=== PATIENT | female | born 1960 | race African-American/Black ===

== ENCOUNTER → 2017-05-07 | Outpatient (REF) | payer MEDICARE | LOC: M LAB REF 12:40 | DX: J11.1 Influenza due to unidentified influenza virus with other respiratory manifestations (principal) | CPT/HCPCS: 87502 ==

== ENCOUNTER → 2017-09-20 | Outpatient (REF) | payer MEDICARE ==
[2017-09-20 11:00] LABS: ERYTHROCYTE SEDIMENTATION RATE 14 mm/hr (0-30)
[2017-09-20 11:07] LABS: C REACTIVE PROTEIN QUANTITATIV 1.58 MG/DL (0.00-0.30); RHEUMATOID FACTOR QUANT < 10.0 IU/ML (<15.0)
[2017-09-21 14:17] LABS: ANTI DOUBLE STRAND-DNA AB <1 IU/mL (0-9); ANTINUCLEAR ANTIBODIES DIRECT Positive (Negative); RNP ANTIBODIES <0.2 AI (0.0-0.9); SJOGREN'S ANTI SS-A >8.0 AI (0.0-0.9); SJOGREN'S ANTI SS-B <0.2 AI (0.0-0.9); SMITH ANTIBODIES <0.2 AI (0.0-0.9)
== END ==
LOC: M LABDRAW1 09:39
DX: M54.2 Cervicalgia (principal)
CPT/HCPCS: 84550

== ENCOUNTER → 2018-06-12 | Outpatient (REF) | payer MEDICARE ==
[2018-06-14 16:40] LABS: HPV HYBRID CAPTURE II Negative (Negative)
== END ==
LOC: M LAB REF 18:27
PROVIDERS: ATTEND Obstetrics & Gynecology
DX: Z12.4 Encounter for screening for malignant neoplasm of cervix (principal)
CPT/HCPCS: 87624; G0123

== ENCOUNTER → 2018-06-12 | Outpatient (REF) | payer MEDICARE ==
[2018-06-12 11:17] LABS: BASO % 0.5 % (0.0-1.0); EOS # 0.1 10^3/uL (0.0-0.50); EOS % 1.5 % (0.0-3.0); HEMATOCRIT 37.4 % (36.0-47.0); HEMOGLOBIN 12.2 g/dl (12.0-15.5); LYMPH # 2.5 10^3/uL (1.5-4.5); LYMPH % 32.6 % (24.0-44.0); MEAN CORPUSCULAR HGB CONC 32.6 g/dl (32.0-36.5); MEAN CORPUSCULAR VOLUME 85.8 fl (80.0-96.0); MONO # 0.7 10^3/uL (0.0-0.8); MONO % 8.6 % (0.0-5.0); NEUTROPHILS # 4.3 10^3/uL (1.8-7.7); NEUTROPHILS % 56.5 % (36.0-66.0); PLATELET COUNT, AUTOMATED 173 10^3/uL (150-450); RED BLOOD COUNT 4.36 10^6/uL (4.00-5.40); WHITE BLOOD COUNT 7.6 10^3/uL (4.0-10.0)
[2018-06-12 11:32] LABS: HEMOGLOBIN A1c 6.8 %
[2018-06-12 12:26] LABS: ALT/SGPT 26 U/L (12-78); BILIRUBIN,TOTAL 0.4 MG/DL (0.2-1.0); BLOOD UREA NITROGEN 24 MG/DL (7-18); CALCIUM LEVEL 8.9 MG/DL (8.5-10.1); CARBON DIOXIDE LEVEL 26 MEQ/L (21-32); CHLORIDE LEVEL 107 MEQ/L (98-107); CHOLESTEROL LEVEL 266 MG/DL (<200); CHOLESTEROL RISK RATIO 5.541 (<5); CREATININE FOR GFR 0.95 MG/DL (0.55-1.30); GLOMERULAR FILTRATION RATE > 60.0 (>51); GLUCOSE, FASTING 117 MG/DL (70-100); HDL CHOLESTEROL 48 MG/DL (>40); LDL CHOLESTEROL 190 MG/DL (<100); NON-HDL-C 218 MG/DL; POTASSIUM SERUM 4.1 MEQ/L (3.5-5.1); SODIUM LEVEL 140 MEQ/L (136-145); TOTAL 25(OH) VITAMIN D 61.3 NG/ML (30.0-100.0); TOTAL PROTEIN 8.6 GM/DL (6.4-8.2); TRIGLYCERIDES LEVEL 140 MG/DL (<150)
[2018-06-14 00:07] LABS: Lyme Disease IgG/IgM Antibodie <0.91 ISR (0.00-0.90); Lyme Disease IgM Ab Quantitati <0.80 index (0.00-0.79)
== END ==
LOC: M LAB REF 10:47
PROVIDERS: ATTEND Family Medicine
DX: Z13.228 Encounter for screening for other metabolic disorders (principal); Z00.01 Encounter for general adult medical examination with abnormal findings; M25.559 Pain in unspecified hip

== ENCOUNTER → 2018-06-18 | Outpatient (CLI) | payer MEDICARE, MEDICAID ==
--- NOTE | 2018-06-18 15:28 | REP ---
Clinical: Pelvic pain . Technique: Transabdominal pelvic ultrasound followed by transvaginal examination for better evaluation of the endometrium and adnexa with color Doppler evaluation of the ovaries. Findings: Bladder is unremarkable and measures 9.1 x 8.1 x 6.0 cm . Heterogeneous anteverted myomatous uterus measures 5.9 x 3.1 x 4.0 cm . The endometrial complex measures 6 mm thickness exclusive of a small amount of fluid in the endometrial canal. Right posterior subserosal fibroid measures 1.3 cm maximal diameter; left submucosal fibroid measures 1.3 cm maximal diameter; left intramural fibroid measures 1.0 cm maximal diameter. Bilateral ovaries are normal in appearance and vascularity without evidence for torsion. Right ovary measures 2.7 x 1.3 x 1.4 cm ; R I = 0.72 . Left ovary measures 2.7 x 1.5 x 1.4 cm ; R I = 0.67 . No pelvic fluid or adnexal abnormality. Impression: 1. myomatous uterus as described above. 2. Normal bilateral ovaries without torsion. Electronically Signed by Marcelo Ortiz MD 06/18/2018 03:19 P
--- NOTE | 2018-06-19 16:17 | REPMRS ---
Patient History The patient states she had a clinical breast exam in May 2018. Patient is postmenopausal. No known family history of cancer. Patient had a prior 2-3 years ago in [facility] with normal results. She has CD at home and will bring back for files to upload. 3D TOMOSYNTHESIS WAS PERFORMED. Digital Mammo Screening Bilat: June 18, 2018 - Exam #: [id number] Bilateral CC and MLO view(s) were taken. Technologist: Cass Rae, Technologist Prior study comparison: December 10, 2012, bilateral digital mammo screening bilat, performed at [facility]. FINDINGS: The breast tissue is heterogeneously dense. This may lower the sensitivity of mammography. There has been no change in the appearance of the mammogram from the prior studies. There is a moderate amount of residual fibroglandular tissue which is fairly symmetric. There is no interval development of dominant mass, areas of architectural distortion, or clustered microcalcification typical of malignancy. Assessment: BI-RADS/ACR category 1 mammogram. Negative Mammogram. Recommendation Routine screening mammogram in 1 year (for women over age 40). This mammogram was interpreted with the aid of an FDA-approved computer-aided dectection system. Electronically Signed By: Omar Mckenzie MD 06/19/18 [id number]
== END ==
LOC: M RAD 13:11
PROVIDERS: ATTEND Obstetrics & Gynecology
DX: Z12.31 Encounter for screening mammogram for malignant neoplasm of breast (principal); R10.2 Pelvic and perineal pain; Z78.0 Asymptomatic menopausal state; D25.9 Leiomyoma of uterus, unspecified

== ENCOUNTER 2018-09-02 11:38 | Emergency (ER) | payer MEDICAID, MEDICARE ==
[~2018-09-02] VITALS: Ht 162.6 cm; Wt 77.3 kg
[2018-09-02] MEDS ORDERED: METO1TAB32 (11:46)
[2018-09-02] MEDS ORDERED: ESOM20CA25 (11:46)
[2018-09-02] MEDS ORDERED: HYDR25TAB (11:46)
--- NOTE | 2018-09-02 14:10 | REP ---
Left lower extremity deep vein duplex ultrasound: The deep veins demonstrate normal compression, normal Doppler color flow and normal Doppler waveforms with respiration and augmentation from the popliteal vein to the common femoral vein. Impression: There is no left lower extremity deep vein thrombus. Electronically Signed by Omar Herrera MD 09/02/2018 12:17 P
[2018-09-02 14:31] LABS: BASO % 0.3 % (0.0-1.0); EOS # 0.1 10^3/uL (0.0-0.50); EOS % 1.5 % (0.0-3.0); HEMATOCRIT 35.5 % (36.0-47.0); HEMOGLOBIN 11.6 g/dl (12.0-15.5); LYMPH # 1.9 10^3/uL (1.5-4.5); LYMPH % 29.5 % (24.0-44.0); MEAN CORPUSCULAR HEMOGLOBIN 28.9 pg (27.0-33.0); MEAN CORPUSCULAR HGB CONC 32.7 g/dl (32.0-36.5); MEAN CORPUSCULAR VOLUME 88.5 fl (80.0-96.0); MONO # 0.5 10^3/uL (0.0-0.8); MONO % 7.8 % (0.0-5.0); NEUTROPHILS % 60.7 % (36.0-66.0); PLATELET COUNT, AUTOMATED 158 10^3/uL (150-450); RED BLOOD COUNT 4.01 10^6/uL (4.00-5.40); WHITE BLOOD COUNT 6.6 10^3/uL (4.0-10.0)
[2018-09-02 14:58] LABS: BLOOD UREA NITROGEN 31 MG/DL (7-18); CALCIUM LEVEL 9.9 MG/DL (8.5-10.1); CARBON DIOXIDE LEVEL 27 MEQ/L (21-32); CHLORIDE LEVEL 106 MEQ/L (98-107); CK-MB VALUE MASS 1.3 NG/ML (<3.6); CPK CREATINE PHOSPHOKINASE 182 U/L (26-192); CREATININE FOR GFR 1.07 MG/DL (0.55-1.30); GLOMERULAR FILTRATION RATE > 60.0 (>51); GLUCOSE, FASTING 91 MG/DL (70-100); MB/CK RELATIVE INDEX 0.71 (< OR =4); SODIUM LEVEL 138 MEQ/L (136-145); TROPONIN I 0.03 NG/ML (< 0.10)
[2018-09-02] MEDS ORDERED: NS 1,000 ML IV ONE (15:00)
[2018-09-02] MEDS ORDERED: ISOVUE-370 76% 100ML VIAL (Q9967) As Ordered ONE (15:04)
--- NOTE | 2018-09-02 15:23 | REP ---
CHEST, TWO VIEWS: There is no evidence of acute infiltrate. No pleural effusion is seen. The heart is normal in size. The mediastinal silhouette is unremarkable. The visualized osseous structures are intact. There are degenerative changes of the spine. IMPRESSION: No acute pulmonary disease. Electronically Signed by Omar Mckenzie MD 09/02/2018 04:44 P
[2018-09-02] MEDS ORDERED: PEPC1TAB5 PO (17:23)
[2018-09-02] MEDS ORDERED: NAPR-885 PO (17:24)
[2018-09-02 17:28] VITALS: BP 141/74
--- NOTE | 2018-09-02 17:34 | REP ---
CT ANGIOGRAM CHEST: TECHNIQUE: Axial contrast enhanced images from the thoracic inlet to the upper abdomen using 100 mL Isovue 370 intravenous contrast material with multiplanar reformations. There is no CT evidence of pulmonary embolism. There is no thoracic aortic aneurysm of dissection. The heart is mildly enlarged. There is no pleural or pericardial effusion. There is no mediastinal, hilar or chest wall lymphadenopathy. The lungs show no infiltrate. Visualized upper abdominal structures appear unremarkable. IMPRESSION: No CT evidence of pulmonary embolism or aortic dissection. Electronically Signed by Omar Mckenzie MD 09/03/2018 02:34 P
--- NOTE | 2018-09-02 19:22 | ECGEPIP ---
[facility] - ED Test Date: 2018-09-02 Pat Name: ENEIDA GUSTAFSON Department: Room: - Gender: Female [employer]: : 1960 Requested By: Sachin Delgado Order Number: [id number] Reading MD: Arti Curtis Measurements Intervals [place] Rate: 53 P: 55 MS: 153 QRS: 15 QRSD: 76 T: 24 QT: 424 QTc: 398 Interpretive Statements SINUS BRADYCARDIA NO PRIOR FOR COMPARISON Electronically Signed on 09-02-2018 19:21:51 EDT by Arti Curtis
== END 2018-09-02 17:35 | disposition home or self-care (01) ==
LOC: M ED 11:38
DX: S86.912A Strain of unspecified muscle(s) and tendon(s) at lower leg level, left leg, initial encounter (principal); R00.1 Bradycardia, unspecified; K21.9 Gastro-esophageal reflux disease without esophagitis; X58.XXXA Exposure to other specified factors, initial encounter; Y92.9 Unspecified place or not applicable; Y93.9 Activity, unspecified; Y99.9 Unspecified external cause status; I10 Essential (primary) hypertension; Z79.899 Other long term (current) drug therapy
CPT/HCPCS: 71046; 71275; 80048; 82550; 82553; 84484; 85025; 85379; 93005; 93971; 96361; 99284; Q9967

== ENCOUNTER → 2018-09-12 | Outpatient (REF) | payer MEDICARE ==
[~2018-09-12] MED LIST: ESOM20CA25; HYDR25TAB; METO1TAB32; NAPR-885 PO; PEPC1TAB5 PO
[2018-09-12 12:35] LABS: BASO % 0.4 % (0.0-1.0); EOS # 0.1 10^3/uL (0.0-0.50); EOS % 1.8 % (0.0-3.0); HEMATOCRIT 33.7 % (36.0-47.0); HEMOGLOBIN 10.9 g/dl (12.0-15.5); LYMPH # 1.8 10^3/uL (1.5-4.5); LYMPH % 27.1 % (24.0-44.0); MEAN CORPUSCULAR HEMOGLOBIN 28.8 pg (27.0-33.0); MEAN CORPUSCULAR HGB CONC 32.3 g/dl (32.0-36.5); MEAN CORPUSCULAR VOLUME 89.2 fl (80.0-96.0); MONO # 0.7 10^3/uL (0.0-0.8); MONO % 9.9 % (0.0-5.0); NEUTROPHILS # 4.1 10^3/uL (1.8-7.7); NEUTROPHILS % 60.5 % (36.0-66.0); PLATELET COUNT, AUTOMATED 150 10^3/uL (150-450); RED BLOOD COUNT 3.78 10^6/uL (4.00-5.40); WHITE BLOOD COUNT 6.8 10^3/uL (4.0-10.0)
[2018-09-12 12:47] LABS: ALBUMIN 3.7 GM/DL (3.2-5.2); ALT/SGPT 24 U/L (12-78); BILIRUBIN,TOTAL 0.3 MG/DL (0.2-1.0); BLOOD UREA NITROGEN 28 MG/DL (7-18); CALCIUM LEVEL 9.2 MG/DL (8.5-10.1); CARBON DIOXIDE LEVEL 26 MEQ/L (21-32); CHLORIDE LEVEL 104 MEQ/L (98-107); CHOLESTEROL LEVEL 217 MG/DL (<200); CREATININE FOR GFR 1.18 MG/DL (0.55-1.30); GLOMERULAR FILTRATION RATE > 60.0 (>51); GLUCOSE, FASTING 101 MG/DL (70-100); HDL CHOLESTEROL 48 MG/DL (>40); LDL CHOLESTEROL 149 MG/DL (<100); NON-HDL-C 169 MG/DL; SODIUM LEVEL 136 MEQ/L (136-145); TOTAL 25(OH) VITAMIN D 67.7 NG/ML (30.0-100.0); TOTAL PROTEIN 8.1 GM/DL (6.4-8.2); TRIGLYCERIDES LEVEL 101 MG/DL (<150)
[2018-09-12 13:01] LABS: HEMOGLOBIN A1c 6.4 %
[2018-09-12 18:06] LABS: APPEARANCE, URINE CLOUDY (CLEAR); BACTERIA, URINE AUTO 1+ (NEGATIVE); BILIRUBIN, URINE AUTO NEGATIVE (NEGATIVE); BLOOD, URINE BLOOD 1+ (NEGATIVE); COLOR, URINE YELLOW (YELLOW); GLUCOSE, URINE (UA) AUTO NEGATIVE (NEGATIVE); KETONE, URINE AUTO NEGATIVE (NEGATIVE); LEUKOCYTE ESTERASE, URINE AUTO 3+ (NEGATIVE); MUCUS, URINE SMALL (NEGATIVE); NITRITE, URINE AUTO NEGATIVE (NEGATIVE); PROTEIN, URINE AUTO NEGATIVE (NEGATIVE); RBC, URINE AUTO 31 /HPF (0-3); SPECIFIC GRAVITY URINE AUTO 1.012 (1.002-1.035); SQUAMOUS EPITHELIAL CELL UR AU 12 /HPF (0-6); UROBILINOGEN, URINE AUTO 0.2 mg/dL (0.0-2.0); WBC, URINE AUTO 35 /HPF (0-3)
[2018-09-12 18:29] LABS: MALB URINE SIEMENS 24.8 MG/L; MAU/CREAT RATIO 11.6 MCG/MG (0.0-30.0)
== END ==
LOC: M LAB REF 12:18
PROVIDERS: ATTEND Family Medicine
DX: E11.9 Type 2 diabetes mellitus without complications (principal); E78.5 Hyperlipidemia, unspecified; Z79.899 Other long term (current) drug therapy

== ENCOUNTER → 2018-09-16 | Outpatient (REF) | payer MEDICARE ==
[2018-09-16 19:53] LABS: APPEARANCE, URINE HAZY (CLEAR); BACTERIA, URINE AUTO 1+ (NEGATIVE); BILIRUBIN, URINE AUTO NEGATIVE (NEGATIVE); BLOOD, URINE BLOOD NEGATIVE (NEGATIVE); COLOR, URINE YELLOW (YELLOW); GLUCOSE, URINE (UA) AUTO NEGATIVE (NEGATIVE); KETONE, URINE AUTO NEGATIVE (NEGATIVE); LEUKOCYTE ESTERASE, URINE AUTO 1+ (NEGATIVE); NITRITE, URINE AUTO NEGATIVE (NEGATIVE); PROTEIN, URINE AUTO NEGATIVE (NEGATIVE); RBC, URINE AUTO 2 /HPF (0-3); SPECIFIC GRAVITY URINE AUTO 1.005 (1.002-1.035); SQUAMOUS EPITHELIAL CELL UR AU 0 /HPF (0-6); UROBILINOGEN, URINE AUTO 0.2 mg/dL (0.0-2.0); WBC, URINE AUTO 2 /HPF (0-3)
== END ==
LOC: M LAB REF 18:55
PROVIDERS: ATTEND Family Medicine
DX: R82.90 Unspecified abnormal findings in urine (principal)

== ENCOUNTER 2018-10-08 14:17 | Emergency (ER) | payer MEDICARE ==
[~2018-10-08] VITALS: Ht 162.6 cm; Wt 75.0 kg
[2018-10-08 14:17] VITALS: BP 134/92
[~2018-10-08 14:17] MED LIST changes: -HYDR25TAB; +HYDR25TAB PO; -METO1TAB32; +METO1TAB32 PO
[2018-10-08] MEDS ORDERED: LIDOCAINE 1% MDV 20ML VIAL SC ONE (16:30)
[2018-10-08] MEDS ORDERED: LIDOCAINE 1% MDV 20ML VIAL As Ordered ONE (16:32)
[2018-10-08] MEDS ORDERED: BACT800T5 PO (16:50)
== END 2018-10-08 17:33 | disposition home or self-care (01) ==
LOC: M ED 14:17
DX: L05.01 Pilonidal cyst with abscess (principal); I10 Essential (primary) hypertension; K21.9 Gastro-esophageal reflux disease without esophagitis; Z79.899 Other long term (current) drug therapy

== ENCOUNTER → 2020-05-18 | Outpatient (REF) | payer MEDICARE ==
[~2020-05-18] MED LIST changes: +BACT800T5 PO; +HYDR-3490 PO; -HYDR25TAB PO
[2020-05-18 12:49] LABS: BASO % 0.6 % (0.0-1.0); EOS # 0.1 10^3/uL (0.0-0.5); EOS % 1.5 % (0.0-3.0); HEMATOCRIT 39.4 % (36.0-47.0); HEMOGLOBIN 12.2 g/dl (12.0-15.5); LYMPH # 2.6 10^3/uL (1.5-5.0); MEAN CORPUSCULAR VOLUME 90.4 fl (80.0-96.0); MONO # 0.7 10^3/uL (0.0-0.8); MONO % 9.6 % (2.0-8.0); NEUTROPHILS # 3.3 10^3/uL (1.5-8.5); PLATELET COUNT, AUTOMATED 151 10^3/uL (150-450); RED BLOOD COUNT 4.36 10^6/uL (4.00-5.40); WHITE BLOOD COUNT 6.8 10^3/uL (4.0-10.0)
[2020-05-18 13:35] LABS: ALBUMIN 4.1 GM/DL (3.2-5.2); ALT/SGPT 31 U/L (12-78); BILIRUBIN,TOTAL 0.3 MG/DL (0.2-1.0); BLOOD UREA NITROGEN 33 MG/DL (7-18); CALCIUM LEVEL 9.6 MG/DL (8.8-10.2); CARBON DIOXIDE LEVEL 28 MEQ/L (21-32); CHLORIDE LEVEL 108 MEQ/L (98-107); CHOLESTEROL LEVEL 268 MG/DL (<200); CHOLESTEROL RISK RATIO 4.542 (<5); CREATININE FOR GFR 0.98 MG/DL (0.55-1.30); GLOMERULAR FILTRATION RATE > 60.0 (>45); GLUCOSE, FASTING 109 MG/DL (70-100); HDL CHOLESTEROL 59 MG/DL (>40); LDL CHOLESTEROL 185 MG/DL (<100); NON-HDL-C 209 MG/DL; POTASSIUM SERUM 4.2 MEQ/L (3.5-5.1); SODIUM LEVEL 141 MEQ/L (136-145); TOTAL PROTEIN 8.1 GM/DL (6.4-8.2); TRIGLYCERIDES LEVEL 121 MG/DL (<150)
[2020-05-18 13:52] LABS: HEMOGLOBIN A1c 6.1 %
== END ==
LOC: M LAB REF 12:09
PROVIDERS: ATTEND Physician Assistant
DX: E11.9 Type 2 diabetes mellitus without complications (principal)

== ENCOUNTER → 2020-06-17 | Outpatient (CLI) | payer MEDICARE ==
--- NOTE | 2020-06-17 10:56 | REPMRS ---
Patient History The patient states she has not had a clinical breast exam in over a year. No known family history of cancer. 3D TOMOSYNTHESIS WAS PERFORMED. [facility] lifetime risk for breast cancer is 8.2%. Volpara breast density b. Digital Woman Screen Mammo: June 17, 2020 - Exam #: [id number] Bilateral CC and MLO view(s) were taken. Technologist: Brook Patrick, Technologist Prior study comparison: June 18, 2018, bilateral digital mammo screening bilat, performed at [facility]. December 10, 2012, bilateral digital mammo screening bilat, performed at [facility]. FINDINGS: The breast tissue is heterogeneously dense. This may lower the sensitivity of mammography. There has been no change in the appearance of the mammogram from the prior studies. There is a moderate amount of residual fibroglandular tissue which is fairly symmetric. There is no interval development of dominant mass, areas of architectural distortion, or clustered microcalcification typical of malignancy. Assessment: BI-RADS/ACR category 1 mammogram. Negative Mammogram. Recommendation Routine screening mammogram in 1 year (for women over age 40). This mammogram was interpreted with the aid of an FDA-approved computer-aided dectection system. Electronically Signed By: Omar Mckenzie MD 06/17/20 [id number]
== END ==
LOC: M WHC 09:50
PROVIDERS: ATTEND Physician Assistant
DX: Z12.31 Encounter for screening mammogram for malignant neoplasm of breast (principal)

== ENCOUNTER → 2020-06-22 | Outpatient (CLI) | payer MEDICARE ==
--- NOTE | 2020-06-22 12:57 | ECHO ---
DATE OF PROCEDURE: 06/22/2020 Age: 59 Gender: Female Height: 64 inches Weight: 174 pounds Body Surface Area: 1.84 m2 PATIENT LOCATION: Outpatient. REFERRING PHYSICIAN: KENDALL Hoyt. INDICATION: Mitral valve prolapse. MEASUREMENTS: 2D Measurements: RV - 3.4 cm LV 4.3 cm Septum 1.2 cm Posterior wall 1.2 cm Aortic Root 3.0 cm LA 4.2 cm LVEF 65% Doppler Measurements: AV 1.4 m/s LVOT 1.03 m/s LVOT diameter 1.8 cm MV-E 87, A 70, EA ratio 1.2 Early mitral deceleration time 185 msec E prime medial 8, A prime medial 10, E prime lateral 10 Average E/E prime ratio 9.7/PCWP 13.9 mmHg PV 1.0 m/s Pulmonary artery acceleration time 100 msec RVSP 42 mmHg IVC - 1.8 cm COMMENTS: Sinus bradycardia without intraventricular conduction disturbance. M-mode and 2-dimensional echocardiography was performed with pulse, continuous wave, color flow, and tissue Doppler studies. Borderline concentric left ventricular hypertrophy with normal wall motion. Mildly dilated left atrium with currently normal Doppler assessment of LV diastolic function and estimated mean left atrial pressure. Normal right heart chamber sizes and wall motion with Doppler evidence of at least mild to moderate pulmonary hypertension. IVC size upper limits of normal with slightly reduced respiratory collapse suggestive of central venous pressure upper limits of normal to mildly increased. Normal aortic diameters. Slightly thickened aortic cusps without functional abnormality. Slightly thickened anterior leaflet edge of the mitral valve with normal leaflet excursion and no posterior systolic buckling to suggest prolapse yet at least mild to moderate posteriorly directed insufficiency. Normal appearing tricuspid valve with moderate insufficiency. No apparent intracardiac mass or pericardial effusion. The above test findings are consistent with an acquired mitral valve abnormality but not typical of mitral valve prolapse. Other findings consistent with hypertensive heart disease. Nelson management would be continued optimal blood pressure control and weight reduction. A follow up examination would be recommended in two years. AMADA
== END ==
LOC: M CARPUL 09:20
PROVIDERS: ATTEND Physician Assistant
DX: I34.1 Nonrheumatic mitral (valve) prolapse (principal); R00.1 Bradycardia, unspecified

== ENCOUNTER → 2021-10-12 | Outpatient (CLI) | payer MEDICARE | LOC: M WHC 07:07 | PROVIDERS: ATTEND Nurse Practitioner Family | DX: R92.8 Other abnormal and inconclusive findings on diagnostic imaging of breast (principal); N64.4 Mastodynia | CPT/HCPCS: 76642; 77066; G0279 ==

== ENCOUNTER → 2022-05-03 | Outpatient (CLI) | payer MEDICARE | LOC: M WHC 08:50 | PROVIDERS: ATTEND Nurse Practitioner Family | DX: R92.8 Other abnormal and inconclusive findings on diagnostic imaging of breast (principal) | CPT/HCPCS: 76642; 77065; G0279 ==

== ENCOUNTER → 2022-10-30 | Outpatient (CLI) | payer MEDICARE, MEDICAID | LOC: M WHC 09:52 | PROVIDERS: ATTEND Family Medicine Addiction Medicine | DX: R92.8 Other abnormal and inconclusive findings on diagnostic imaging of breast (principal) | CPT/HCPCS: 77066; G0279 ==

== ENCOUNTER → 2023-09-02 | Outpatient (CLI) | payer MEDICARE, MEDICAID | LOC: M PLAIMG 12:09 | PROVIDERS: ATTEND Nurse Practitioner Family | DX: I05.1 Rheumatic mitral insufficiency (principal) ==

== ENCOUNTER → 2024-01-06 | Outpatient (CLI) | payer MEDICARE, MEDICAID | LOC: M WHC 10:54 | PROVIDERS: ATTEND Nurse Practitioner Family | DX: Z12.31 Encounter for screening mammogram for malignant neoplasm of breast (principal); Z13.820 Encounter for screening for osteoporosis; R92.8 Other abnormal and inconclusive findings on diagnostic imaging of breast; R92.333 Mammographic heterogeneous density, bilateral breasts; Z78.0 Asymptomatic menopausal state ==

== ENCOUNTER → 2024-01-14 | Outpatient (REF) | payer MEDICARE, MEDICAID, OTHER ==
[2024-02-06 12:10] LABS: HPV APTIMA NOT DETECTED (NOT DETECT)
== END ==
LOC: M SFHCWAGY 14:00
PROVIDERS: ATTEND Nurse Practitioner Family
DX: Z12.4 Encounter for screening for malignant neoplasm of cervix (principal)
CPT/HCPCS: 87624; G0123

== ENCOUNTER → 2024-12-16 | Outpatient (REF) | payer MEDICARE, MEDICAID ==
[2024-12-16 21:04] LABS: APPEARANCE, URINE HAZY (CLEAR); BACTERIA, URINE AUTO 3+ (NEGATIVE); BILIRUBIN, URINE AUTO NEGATIVE (NEGATIVE); BLOOD, URINE BLOOD NEGATIVE (NEGATIVE); GLUCOSE, URINE (UA) AUTO NEGATIVE (NEGATIVE); KETONE, URINE AUTO NEGATIVE (NEGATIVE); LEUKOCYTE ESTERASE, URINE AUTO 3+ (NEGATIVE); NITRITE, URINE AUTO POSITIVE (NEGATIVE); PROTEIN, URINE AUTO 1+ mg/dL (NEGATIVE); RBC, URINE AUTO 4 /HPF (0-3); SPECIFIC GRAVITY URINE AUTO 1.009 (1.002-1.035); SQUAMOUS EPITHELIAL CELL UR AU 1 /HPF (0-6); UROBILINOGEN, URINE AUTO 0.2 mg/dL (0.0-2.0); WBC, URINE AUTO 58 /HPF (0-3)
== END ==
LOC: M LAB REF 20:50
PROVIDERS: ATTEND Physician Assistant
DX: N39.0 Urinary tract infection, site not specified (principal)